=== PATIENT | male | born 1955 | race Hispanic/Latino ===

== ENCOUNTER 2019-06-16 13:58 | Emergency (ER) | payer BC ==
[~2019-06-16] VITALS: Ht 172.7 cm; Wt 90.0 kg
[2019-06-16] MEDS ORDERED: SYMBICORT1 AE1 IN ×2 (14:10→15:26)
[2019-06-16] MEDS ORDERED: VENTOLIN HFA IN (15:26)
[2019-06-16 15:33] VITALS: BP 138/92
== END 2019-06-16 15:43 | disposition home or self-care (01) | DRG 951 ==
LOC: ED 13:58
DX: Z76.0 Encounter for issue of repeat prescription (principal); R06.2 Wheezing; F17.210 Nicotine dependence, cigarettes, uncomplicated